=== PATIENT | male | born 1985 | race Caucasian/White ===

== ENCOUNTER 2018-12-24 11:34 | Emergency (ER) | payer MEDICAID, OTHER ==
[~2018-12-24] VITALS: Ht 180.3 cm; Wt 102.4 kg
[~2018-12-24 11:34] MED LIST: CEPH-443 PO; CLIN300C10 PO; MUPI22OI2 TOP; OFLO5DRO46 LEFT EYE
[2018-12-24 11:37] VITALS: Ht 180.3 cm; Wt 102.4 kg
[2018-12-24] MEDS ORDERED: TETRACAINE 0.5% 4 ML OPH LEFT EYE SCH (13:30)
[2018-12-24] MEDS ORDERED: FLUORESCEIN STRIP LEFT EYE ONE (13:30)
--- NOTE | 2018-12-24 14:09 | ERD ---
ER Documentation Chief Complaint Chief Complaint left eye pain x 2 days HPI 33-year-old male presenting with left eye pain x2 days. Patient states that he got something in his eye and he is unsure. He does not use contacts or glasses. He states that he is on heroin. This started irritating him yesterday he tried using Visine with no relief of symptoms. Denies medical problems. NKDA. Surgical history denies. Social history denies ROS All systems reviewed and are negative except as per history of present illness. Medications Home Meds Active Scripts Ofloxacin* (Ocuflox*) 0.3%-5 Ml Ophth Drops, 1 DROP LEFT EYE QID, #1 BOTTLE Prov:MANISHA CALVERT PA-C 12/24/18 Mupirocin* (Bactroban*) 2% -22 Gram Oint...g., 1 APPLIC TOP BID for 7 Days, EA Prov:JUAN GARZA TUFTING CREELER 11/02/17 Cephalexin* (Keflex*) 500 Mg Capsule, 500 MG PO QID for 7 Days, CAP Prov:JUAN GARZA TUFTING CREELER 11/02/17 Reported Medications Clindamycin Hcl* (Clindamycin Hcl*) 300 Mg Capsule, 300 MG PO TID 08/31/11 Allergies Allergies: Coded Allergies: No Known Allergy (Unverified , 08/31/11) PMhx/Soc History of Surgery: No Anesthesia Reaction: No Hx Neurological Disorder: No Hx Respiratory Disorders: No Hx Cardiac Disorders: No Hx Psychiatric Problems: Yes (depression) Hx Miscellaneous Medical Probl: No Hx Alcohol Use: No 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 Conjunctivae are pink. Pupils equal, round, and reactive to light. There is no scleral icterus. Tympanic membranes clear bilaterally. Oropharynx clear. Injection noted of the left sclera. Foreign body not seen. Small corneal abrasion noted under fluorescein stain NECK: C-spine is soft and supple. There is no meningismus. There is no cervical lymphadenopathy. CHEST: Clear to auscultation bilaterally. There are no rales, wheezes or rhonchi. HEART: Regular rate and rhythm. No murmurs, clicks, rubs or gallops. No S3 or S4. Results 24 hrs Current Medications Medications Dose Sig/Shen Start Time Status Last (Trade) Ordered Route PRN Stop Time Admin Dose Reason Admin Fluorescein 1 strip ONCE ONCE 12/24/18 DC Sodium LEFT EYE 13:30 ([id number] 12/24/18 13:31 p) Tetracaine 1 drop ONCE LEFT 12/24/18 HCl EYE 13:30 (Tetracaine 0.5% Steri-Unit Dionne) Procedures/MDM MDM: 33-year-old male presenting with erythema to the left eye. Corneal abrasion noted and patient will be treated with ophthalmic antibiotic drops. I have low suspicion for visual deficit or retained foreign body. I have low suspicion for other abnormalities. Patient is discharged with strict ER precautions and told to follow-up with primary care within 1 to 2 days for close evaluation. Patient is told symptoms change or worsen to return immediately to the ER. All questions answered at discharge Departure Diagnosis: Primary Impression: Cornea abrasion Condition: Stable Patient Instructions: Corneal Abrasion Referrals: [facility] Hours: Mon - Fri 9:00 AM - 5:00 PM Additional Instructions: FOLLOW UP WITH YOUR PRIMARY CARE PHYSICIAN TOMORROW.Return to this facility if you are not improving as expected. MANISHA CALVERT PA-C Dec 24, 2018 14:09
[2018-12-24 14:10] VITALS: BP 125/71; PULSE 81; RESP 18
== END 2018-12-24 14:12 | disposition home or self-care (01) ==
LOC: FTE 11:34
DX: S05.01XA Injury of conjunctiva and corneal abrasion without foreign body, right eye, initial encounter (principal); X58.XXXA Exposure to other specified factors, initial encounter; Y92.9 Unspecified place or not applicable; Z87.891 Personal history of nicotine dependence
CPT/HCPCS: Z7502; Z7610; 99283